=== PATIENT | female | born 1960 | race Caucasian/White ===

== ENCOUNTER 2019-07-17 17:33 | Emergency (ER) | payer MEDICAID ==
--- NOTE | 2019-07-17 18:25 | Emergency Department Record ---
History of Present Illness - General Chief Complaint: Confusion Stated Complaint: CONFUSION Time Seen by Provider: 07/17/19 18:19 Source: Patient, Family (Daughter) Mode of Arrival: Ambulatory Limitations: No limitations - History of Present Illness Initial Comments: 59 yo female presents to ED for evaluation of "confusion" the patient's daughter reports is likely due to recent changes in her glucose treatment. Patient was changed from her insulin pump to exogenous lantus and sliding scale Insulin yesterday following her first appointment with Aysha Lane. Patient reports that she has felt dizzy, nauseated, and fatigued over the past 2 days. Patient denies fevers, chills, cough, or urinary symptoms. Patient does not take anticoagulation medications, denies health problems other than HTN. Patient reports that her blood sugars have been controlled between 120-160 over the past 2 days as well. MD Complaint: Confusion Onset/Timin -: Days(s) Severity: Moderate Consistency: Constant Context: Change in medication Associated Symptoms: Denies other symptoms - [place] Coma Scale Eye Response: (4) Open spontaneously Motor Response: (6) Obeys commands Verbal Response: (5) Oriented [place] Total: 15 - Related Data Allergies Allergy/AdvReac Type Severity Reaction Status Date / Time haloperidol [From Haldol] Allergy Severe Swelling Verified 07/17/19 17:47 tongue and throat haloperidol lactate Allergy Severe Swelling Verified 07/17/19 17:47 [From Haldol] tongue and throat Review of Systems Constitutional: Denies: Chills, Fever, Malaise, Night sweats Eyes: Denies: Eye discharge, Eye pain ENT: Denies: Congestion, Ear pain, Epistaxis Respiratory: Denies: Cough, Dyspnea Cardiovascular: Denies: Chest pain, Dyspnea on exertion Endocrine: Reports: Fatigue. Denies: Heat or cold intolerance Gastrointestinal: Reports: Nausea. Denies: Abdominal pain, Vomiting Genitourinary: Denies: Incontinence, Retention Musculoskeletal: Denies: Arthralgia, Back pain Skin: Denies: Bruising, Change in color Neurological: Reports: Confusion, Vertigo. Denies: Abnormal gait, Headache, Numbness Psychiatric: Denies: Anxiety Hematological/Lymphatic: Denies: Anemia, Blood Clots Physical Exam - General General Appearance: Alert, Oriented x3, Cooperative, No acute distress Limitations: No limitations - Head Head exam: Atraumatic, Normocephalic, Normal inspection Head exam detail: negative: Abrasion, Contusion, Parra's sign, General tenderness, Hematoma, Laceration - Eye Eye exam: Normal appearance. negative: Conjunctival injection, Periorbital swelling, Periorbital tenderness, Scleral icterus - ENT Ear exam: negative: Auricular hematoma, Auricular trauma Nasal Exam: negative: Active bleeding, Discharge, Dried blood, Foreign body Mouth exam: negative: Drooling, Laceration, Muffled voice, Tongue elevation - Neck Neck exam: Normal inspection. negative: Meningismus, Tenderness - Respiratory Respiratory exam: Normal lung sounds bilaterally. negative: Respiratory distress, Rhonchi, Stridor, Wheezes - Cardiovascular Cardiovascular Exam: Regular rate, Normal rhythm, Normal heart sounds - GI/Abdominal GI/Abdominal exam: Soft. negative: Rebound, Rigid, Tenderness - Rectal Rectal exam: Deferred - exam: Deferred - Extremities Extremities exam: Normal inspection. negative: Pedal edema, Tenderness - Back Back exam: Denies: CVA tenderness (R), CVA tenderness (L) - Neurological Neurological exam: Alert, CN II-XII intact, Normal gait, Oriented X3. negative: Motor sensory deficit - Psychiatric Psychiatric exam: Normal affect, Normal mood - Skin Skin exam: Normal color. negative: Abrasion Type of lesion: negative: abrasion Course - Reevaluation(s) Reevaluation #1: 07/17/19 18:35 EKG: Sinus bradycardia 52 Normal axis, normal intervals Low voltage anteriorly Reevaluation #2: 07/17/19 19:11 Laboratory studies were reviewed and appear grossly unremarkable for an acute process. CO2 21 BUN 25 Reevaluation #3: 07/17/19 19:49 Urinalysis was reviewed and appears negative for infection. CXR/CT Brain results are pending at this time. Patient was updated on all results thus far, resting comfortably at this time. Reevaluation #4: 07/17/19 20:51 CT Brain: Atrophy/volume loss No acute process CXR: Negative for an acute process Patient was updated on all results, reports that she is feeling better. Patient has eaten as well, reports that her appetite has improved while in the ED. Patient is alert and oriented as well on both initial and repeat examination. Patient is standing upright in the ED, well appearing, stable gait without ataxia. Patient appears stable for discharge at this time with her daughter. Reevaluation #5: 07/17/19 22:45 Patient reports that her daughter is enroute to pick her up her in the ED. Patient was discharged approximately 90 minutes ago, nursing staff has tried to contact the patient, number is disconnected. 07/18/19 00:37 Patient's daughter has arrived to take the patient home at this time. Patient was discharged home in stable condition. Medical Decision Making - Lab Data Result diagrams: 07/17/19 18:40 07/17/19 18:40 Lab Results 07/17/19 Range/Units 17:57 POC Glucose 117 H (70-110) mg/dL Disposition Disposition: Discharge Clinical Impression: History of confusion Diabetes mellitus Qualifiers: Diabetes mellitus type: type 2 Diabetes mellitus terminologist insulin use: with terminologist use Diabetes mellitus complication status: with other specified complication Qualified Code(s): E11.69 - Type 2 diabetes mellitus with other specified complication Disposition: Home, Self-Care Condition: (2) Stable Instructions: Type 2 Diabetes in Adults (ED) Additional Instructions: Return to ED if your symptoms worsen or if you have any concerns. Resume your Insulin pump as directed. Follow-up with your family doctor in 3-5 days as directed. Forms: Patient Portal Access Time of Disposition: 20:53 Quality - Quality Measures Quality Measures: N/A - Blood Pressure Screening Does Patient Have Any of the Following: Active Dx of HTN Blood Pressure Classification: Hypertensive Reading Systolic Measurement: 140 Diastolic Measurement: 93 Screening for High Blood Pressure: Patient Exclusion, Hx of HTN [[id number]]
[2019-07-17] MEDS ORDERED: 0.9 % SODIUM CHLORIDE 1000ML 500 ML IV SCH (18:30)
[2019-07-17 18:52] LABS: ABSOLUTE NEUTROPHIL COUNT 4.05; BASO % 0.7 % (0-6); EOS % 1.6 % (0-6); GRAN % 50.2 % (47-80); HEMATOCRIT 42.6 % (35.0-47.0); HEMOGLOBIN 13.9 gm/dl (11.6-16.0); LYMPH % 40.5 % (16-45); MEAN CELL VOLUME 86.6 fl (81-97); MEAN CORPUSCULAR HEMOGLOBIN 28.3 pg (27-33); MEAN CORPUSCULAR HGB CONC 32.6 g/dl (32-36); MEAN PLATELET VOLUME 9.7 fl (7.4-10.4); PLATELET COUNT 381 K/uL (130-400); RED BLOOD COUNT 4.92 M/uL (3.80-5.40); RED CELL DISTRIBUTION WIDTH 13.5 % (11.5-14.5); WHITE BLOOD COUNT W/O DIFF 8.1 K/uL (4.2-12.2)
[2019-07-17 19:03] LABS: BLOOD UREA NITROGEN 25 mg/dL (8-23); CREATININE 0.8 mg/dL (0.5-0.9); EST GLOMERULAR FILTRATION RATE > 60 mL/min
[2019-07-17 19:04] LABS: TOTAL PROTEIN 7.8 g/dL (6.6-8.7)
[2019-07-17 19:06] LABS: GLUCOSE,RANDOM 119 mg/dL (74-109)
[2019-07-17 19:08] LABS: ALB/GLOB RATIO 1.4 (1.1-1.8); ALBUMIN 4.5 g/dL (4.0-5.0); ALKALINE PHOSPHATASE 86 U/L (35-104); ALT/SGPT 17 U/L (<33); AST/SGOT 19 U/L (10.0-35.0)
[2019-07-17 19:19] LABS: THYROID STIMULATING HORMONE 1.26 uIU/mL (0.270-4.20)
[2019-07-17 19:28] LABS: AMMONIA 30 umol/L (11.0-51.0)
[2019-07-17 19:34] LABS: URINE APPEARANCE CLEAR; URINE BILIRUBIN NEGATIVE (NEGATIVE); URINE BLOOD NEGATIVE (NEGATIVE); URINE COLOR YELLOW; URINE GLUCOSE (UA) NEGATIVE (NEGATIVE); URINE KETONE TRACE (NEGATIVE); URINE LEUKOCYTE ESTERASE NEGATIVE (NEGATIVE); URINE NITRITE NEGATIVE (NEGATIVE); URINE PROTEIN NEGATIVE (NEGATIVE); URINE UROBILINOGEN 0.2 E.U./dL (0.20 - 1.00)
--- NOTE | 2019-07-18 19:51 | CT SCAN REPORT ---
EXAM: CT SCAN HEAD WO CONTRAST HISTORY: PATIENT HAS CONFUSION AND SWEATING. TECHNIQUE: Serial axial CT scan of the head was performed at 2.5 mm intervals from the base of the skull to the apex without the use of intravenous contrast. Sagittal and coronal reconstructions are provided. No comparison CT's are available. FINDINGS: There is mild to moderate generalized parenchymal volume loss identified. There is no mass or mass effect. The méndez and white differentiation appear within normal limits. There is no CT evidence of intra or extraaxial fluid collection to suggest bleeding. Bone windows demonstrate no CT evidence of a fracture or dislocation of the skull. IMPRESSION: NO CT EVIDENCE OF AN ACUTE INTRACRANIAL PROCESS. JOB NUMBER: [id number] MTDD
--- NOTE | 2019-07-18 20:15 | RADIOLOGY REPORT ---
EXAM: CHEST 2 VIEWS HISTORY: PATIENT HAS CONFUSION AND SWEATING. TECHNIQUE: Two views of the chest are provided without comparison examinations. FINDINGS: The cardiomediastinal silhouette appears within normal limits for size and contour. Libby appear unremarkable. There is no radiographic evidence of a focal infiltrate, pleural effusion, or pneumothorax. IMPRESSION: NO RADIOGRAPHIC EVIDENCE OF AN ACUTE INTRATHORACIC PROCESS. JOB NUMBER: [id number] MTDD
== END 2019-07-18 00:30 | disposition home or self-care (01) ==
LOC: ER 17:33
DX: R41.0 Disorientation, unspecified (principal); E11.69 Type 2 diabetes mellitus with other specified complication; R42 Dizziness and giddiness; R11.0 Nausea; I10 Essential (primary) hypertension; Z87.891 Personal history of nicotine dependence; Z79.4 Long term (current) use of insulin
CPT/HCPCS: 99284 ×2; 82140; 85025; 80053; 36416; 82948; 81003; 84443; 71046; 70450; 93005; 93010; G0480 ×2; 80320; 80329

== ENCOUNTER 2019-10-27 04:18 | Emergency (ER) | payer MEDICAID ==
--- NOTE | 2019-10-27 04:46 | Emergency Department Record ---
History of Present Illness - General Chief Complaint: Depression Stated Complaint: VERY DEPRESSED Time Seen by Provider: 10/27/19 04:21 Source: Patient, Family (Daughter) Mode of Arrival: Ambulatory Limitations: No limitations - History of Present Illness Initial Comments: 59 yo female presents to ED for evaluation of worsening depression symptoms following recent inpatient hospitalization at [facility] for depression following a suicide attempt. Patient was released 1 month ago with several changes to her psychiatric medications, reports that initially following hospitalization she did feel some improvement, however patient reports symptoms since that time. Patient reports "I don't want to get to the point where I try and kill myself". Complaint: Feels depressed -: Week(s) Associated Psychiatric Symptoms: None History of same: Yes Quality: Constant Improves With: None Worsens With: None Context: New medication(s) Associated Symptoms: Denies other symptoms Treatments Prior to Arrival: None - [place] Coma Scale Eye Response: (4) Open spontaneously Motor Response: (6) Obeys commands Verbal Response: (5) Oriented [place] Total: 15 - Related Data Allergies Allergy/AdvReac Type Severity Reaction Status Date / Time haloperidol [From Haldol] Allergy Severe Swelling Verified 10/27/19 04:56 tongue and throat haloperidol lactate Allergy Severe Swelling Verified 10/27/19 04:56 [From Haldol] tongue and throat paliperidone [From Invega] Allergy Intermediate SWELLING Verified 10/27/19 04:56 OF THE TONGUE Phenothiazines Allergy Intermediate SWELLING Verified 10/27/19 04:56 OF THE TONGUE methocarbamol Allergy SWELLING Verified 10/27/19 04:56 OF THE TONGUE muscle relaxer Allergy Intermediate SWELLING Uncoded 10/27/19 04:56 OF THE TONGUE Review of Systems Constitutional: Denies: Chills, Fever, Malaise, Night sweats Eyes: Denies: Eye discharge, Eye pain ENT: Denies: Congestion, Ear pain, Epistaxis Respiratory: Denies: Cough, Dyspnea Cardiovascular: Denies: Chest pain, Dyspnea on exertion Endocrine: Denies: Fatigue, Heat or cold intolerance Gastrointestinal: Denies: Abdominal pain, Nausea, Vomiting Genitourinary: Denies: Incontinence, Retention Musculoskeletal: Denies: Arthralgia, Back pain Skin: Denies: Bruising, Change in color Neurological: Denies: Abnormal gait, Confusion, Headache, Seizure Psychiatric: Reports: Depression, Suicidal thoughts. Denies: Anxiety Hematological/Lymphatic: Denies: Anemia, Blood Clots Past Medical History - SOCIAL HISTORY Smoking Status: Former smoker - RESPIRATORY Hx Respiratory Disorders: No - CARDIOVASCULAR Hx Cardio Disorders: Yes Hx CHF: Yes Hx Hypertension: Yes - NEURO Hx Neuro Disorders: Yes Hx Headaches: Yes - GI Hx GI Disorders: Yes Comment:: ulcerative colitis - Hx Genitourinary Disorders: No - ENDOCRINE Hx Endocrine Disorders: Yes Hx Diabetes: Yes - MUSCULOSKELETAL Hx Musculoskeletal Disorders: No - PSYCH Hx Psych Problems: Yes Hx Anxiety: Yes Hx Depression: Yes - HEMATOLOGY/ONCOLOGY Hx Hematology/Oncology Disorders: No Family Medical History Hx Cancer: Mother Hx Diabetes: Mother Hx Heart Disease: Father Physical Exam - General General Appearance: Alert, Oriented x3, Cooperative, Mild distress Limitations: No limitations - Head Head exam: Atraumatic, Normocephalic, Normal inspection Head exam detail: negative: Abrasion, Contusion, Parra's sign, General tenderness, Hematoma, Laceration - Eye Eye exam: Normal appearance. negative: Conjunctival injection, Periorbital swelling, Periorbital tenderness, Scleral icterus - ENT Ear exam: negative: Auricular hematoma, Auricular trauma Nasal Exam: negative: Active bleeding, Discharge, Dried blood, Foreign body Mouth exam: negative: Drooling, Laceration, Muffled voice, Tongue elevation - Neck Neck exam: Normal inspection. negative: Meningismus, Tenderness - Respiratory Respiratory exam: Normal lung sounds bilaterally. negative: Rales, Respiratory distress, Rhonchi, Stridor - Cardiovascular Cardiovascular Exam: Regular rate, Normal rhythm, Normal heart sounds - GI/Abdominal GI/Abdominal exam: Soft. negative: Rebound, Rigid, Tenderness - Rectal Rectal exam: Deferred - exam: Deferred - Extremities Extremities exam: Normal inspection. negative: Pedal edema, Tenderness - Back Back exam: Denies: CVA tenderness (R), CVA tenderness (L) - Neurological Neurological exam: Alert, Normal gait, Oriented X3 - Psychiatric Psychiatric exam: Depressed - Skin Skin exam: Normal color. negative: Abrasion Type of lesion: negative: abrasion Course - Reevaluation(s) Reevaluation #1: 10/27/19 05:24 Laboratory studies were reviewed and appear grossly unremarkable for an acute process. Will contact [facility] for disposition and evaluation. 10/27/19 05:30 Case was discussed with [facility], records were faxed for review. Reevaluation #2: 10/27/19 06:45 [facility] has reviewed the patient's packet, patient can be transferred for psychiatric evaluation. Medical Decision Making - Lab Data Result diagrams: 10/27/19 04:43 10/27/19 04:43 Disposition Disposition: Transfer Clinical Impression: Depression Qualifiers: Depression Type: major depressive disorder Major depression recurrence: recurrent Active/Remission status: currently active Major depression episode severity: severe Psychotic features: without psychotic features Qualified Code(s): F33.2 - Major depressive disorder, recurrent severe without psychotic features Disposition: Psychiatric Hospital Transfer To: [facility] Reason For Transfer: Severe depression Accepting Physician: Lino Time Discussed w/Accepting Physician: 06:46 Condition: (2) Stable Forms: Patient Portal Access Time of Disposition: 06:46 Quality - Quality Measures Quality Measures: N/A - Blood Pressure Screening Does Patient Have Any of the Following: No Blood Pressure Classification: Pre-Hypertensive BP Reading Systolic Measurement: 132 Diastolic Measurement: 70 Screening for High Blood Pressure: < Pre-Hypertensive BP, F/U Documented > [G8950] Pre-Hypertensive Follow-up Interventions: Referral to alternative/primary care provider.
[2019-10-27 04:52] LABS: ABSOLUTE NEUTROPHIL COUNT 4.93; BASO % 0.4 % (0-6); EOS % 2.1 % (0-6); GRAN % 51.7 % (47-80); HEMATOCRIT 43.1 % (35.0-47.0); HEMOGLOBIN 14.2 gm/dl (11.6-16.0); LYMPH % 38.8 % (16-45); MEAN CELL VOLUME 90.2 fl (81-97); MEAN CORPUSCULAR HEMOGLOBIN 29.7 pg (27-33); MEAN CORPUSCULAR HGB CONC 32.9 g/dl (32-36); MEAN PLATELET VOLUME 9.6 fl (7.4-10.4); PLATELET COUNT 371 K/uL (130-400); RED BLOOD COUNT 4.78 M/uL (3.80-5.40); WHITE BLOOD COUNT W/O DIFF 9.6 K/uL (4.2-12.2)
[2019-10-27 04:57] LABS: AMPHETAMINE SCREEN URINE NOT DETECTED; BARBITURATE SCREEN URINE NOT DETECTED; BENZODIAZEPINE SCREEN URINE NOT DETECTED; COCAINE SCREEN URINE NOT DETECTED; METHADONE SCREEN URINE NOT DETECTED; METHAMPHETAMINE SCREEN NOT DETECTED; OPIATE SCREEN URINE NOT DETECTED; OXYCODONE SCREEN URINE NOT DETECTED; PHENCYCLIDINE SCREEN URINE NOT DETECTED; PROPOXYPHENE SCREEN URINE NOT DETECTED; THC SCREEN URINE NOT DETECTED; TRICYCLIC ANTIDEPRESSANT SCRN DETECTED
[2019-10-27 05:03] LABS: BLOOD UREA NITROGEN 15 mg/dL (8-23)
[2019-10-27 05:04] LABS: CREATININE 0.6 mg/dL (0.5-0.9); EST GLOMERULAR FILTRATION RATE > 60 mL/min
[2019-10-27 05:06] LABS: GLUCOSE,RANDOM 143 mg/dL (74-109)
[2019-10-27 05:11] LABS: ACETAMINOPHEN < 5.0 ug/mL (10.0-30.0); SALICYLATE < 0.3 mg/dL (2.8-20)
[2019-10-27 05:19] LABS: THYROID STIMULATING HORMONE 2.94 uIU/mL (0.270-4.20)
== END 2019-10-27 08:14 ==
LOC: ER 04:18
DX: F33.2 Major depressive disorder, recurrent severe without psychotic features (principal); E11.9 Type 2 diabetes mellitus without complications; I10 Essential (primary) hypertension; I50.9 Heart failure, unspecified; Z87.891 Personal history of nicotine dependence
CPT/HCPCS: 80048; 80305; 80320; 80329; 84443; 85025; 99285

== ENCOUNTER 2020-01-03 10:20 | Day surgery (SDC) | payer MEDICAID ==
[2020-01-03] MEDS ORDERED: LIDOCAINE 2% MDV (20MG/ML) 20ML VIAL IV ONE (10:21)
[2020-01-03] MEDS ORDERED: PROPOFOL 10 MG/ML VIAL IV ONE (10:21)
--- NOTE | 2020-01-08 14:01 | Operative Note ---
OPERATION: COLONOSCOPY with serial biopsy and cold forceps polypectomy. PREOPERATIVE DIAGNOSIS: History of diarrhea and ulcerative colitis, rule out dysplasia. POSTOPERATIVE DIAGNOSES: 1. Colonic diverticulosis. 2. Hyperplastic-appearing rectal polyps. 3. Normal colon otherwise, rule out microscopic dysplasia. PROCEDURE: After informed consent was obtained from the patient, she was placed in the left lateral decubitus position in the endoscopy suite, sedated and monitored by the department of anesthesia. Digital rectal examination was unremarkable. A well-lubricated [id number] colonoscope was inserted into the rectum and advanced to the cecum. Preparation quality was fair. The cecum, cecal bulb, ileocecal valve, terminal ileum, ascending colon, transverse colon, descending colon, sigmoid colon, and rectum were carefully inspected. There were scattered diverticula primarily throughout the sigmoid colon, descending colon, and ascending colon. No mucosal inflammation was seen, particularly in the terminal ileum as well. There were 3 diminutive flat polyps in the rectum removed with a cold forceps. These had a hyperplastic appearance. Random 4-quadrant every 10-cm biopsies were obtained and placed in 2 bottles; one labeled right colon and one labeled left colon. J-turn views of the anorectum were unrevealing. The endoscope was straightened, the rectal ampulla deflated, and the endoscope was removed. RECOMMENDATIONS: The patient should continue her current medical program. Further recommendations based on tissue histology. She should undergo repeat colonoscopy in 2 years for continued dysplasia surveillance in light of her chronic ulcerative colitis history. As always, thank you for allowing me to participate in the healthcare of your patients. LAKISHA
== END 2020-01-03 11:55 | disposition home or self-care (01) ==
LOC: HOP 10:20
PROVIDERS: ATTEND Internal Medicine Gastroenterology
DX: Z87.19 Personal history of other diseases of the digestive system (principal); K62.1 Rectal polyp; K57.30 Diverticulosis of large intestine without perforation or abscess without bleeding; E78.00 Pure hypercholesterolemia, unspecified; E11.9 Type 2 diabetes mellitus without complications; I10 Essential (primary) hypertension